=== PATIENT | male | born 1990 | race Caucasian/White ===

== ENCOUNTER 2019-04-03 10:45 | Emergency (ER) | payer OTHER, MEDICAID, SELFPAY ==
[2019-04-03 10:51] VITALS: BP 138/84; PULSE 76; RESP 18; TEMP 36.4; O2SAT 100
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
[2019-04-03] MEDS: CLINDAMYCIN 900 MG/50 ML PIGGYBACK 50 MG IV (11:56)
[2019-04-03 12:16] LABS: Add Manual Diff / Slide Review NO; Basophils Absolute Auto 100 /uL (0-100); Basophils Percent Auto 0.6 % (0-2); Eosinophils Absolute Auto 100 /uL (0-450); Eosinophils Percent Auto 1.2 % (2-4); Hematocrit 42.4 % (41-53); Hemoglobin 13.9 g/dL (13.5-17.5); Lymphocytes Absolute Auto 1800 /uL (1100-4500); Lymphocytes Percent Auto 17.8 % (25-40); Mean Corpuscular HGB Conc 32.8 % (30-36); Mean Corpuscular Volume 82.3 fL (80-100); Monocytes Absolute Auto 1100 /uL (0-900); Monocytes Percent Auto 10.8 % (3-14); Neutrophils Absolute Auto 7000 /uL (1500-7000); Neutrophils Percent Auto 69.6 % (50-75); Platelet Count 261 X10^3/uL (150-400); Red Blood Cell Count 5.15 X10^6/uL (4.5-5.9)
[2019-04-03 12:20] VITALS: BP 128/86; PULSE 64; RESP 18; O2SAT 97
[2019-04-03 12:30] LABS: Alanine Aminotransferase 22 IU/L (21-72); Albumin 4.9 g/dL (3.5-5.0); Albumin Globulin Ratio 1.4 (1.0-2.8); Alkaline Phosphatase 77 U/L (38-126); Aspartate Aminotransferase 32 IU/L (17-59); BUN Creatinine Ratio 21.3 (6-22); Bilirubin Total 0.8 mg/dL (0.2-1.3); Blood Urea Nitrogen 17 mg/dL (9-20); Calcium 9.7 mg/dL (8.4-10.2); Carbon Dioxide 28 mmol/L (22-32); Chloride 101 mmol/L (98-107); Estimated Glomerular Filt Rate > 60.0 mL/min (>60); Globulin 3.6 g/dL (1.7-4.1); Glucose 97 mg/dL (70-100); HEMOLYSIS < 15 (0-50); Potassium 4.2 mmol/L (3.4-5.1); Sodium 139 mmol/L (137-145); Total Protein 8.5 g/dL (6.3-8.2)
[2019-04-03 15:12] VITALS: BP 125/71; PULSE 65; RESP 16; O2SAT 95
== END 2019-04-03 15:17 | disposition left against medical advice (07) ==
PROVIDERS: Emergency Provider Emergency Medicine
DX: S41.131A Puncture wound without foreign body of right upper arm, initial encounter (principal); W20.8XXA Other cause of strike by thrown, projected or falling object, initial encounter
CPT/HCPCS: 36415; 71046; 71260; 73030; 80053; 85025; 96365; 96366; 99283; 99284; Q9967